=== PATIENT | male | born 1960 | race Caucasian/White ===

== ENCOUNTER 2018-06-12 21:40 | Emergency (ER) | payer MEDICAID, MEDICARE, OTHER ==
[~2018-06-12] VITALS: Ht 193 cm; Wt 79.8 kg
[2018-06-12 21:42] VITALS: BP 151/92
== END 2018-06-12 22:55 | disposition home or self-care (01) ==
LOC: ED 22:20
DX: S52.692A Other fracture of lower end of left ulna, initial encounter for closed fracture (principal); Z21 Asymptomatic human immunodeficiency virus [HIV] infection status; X58.XXXA Exposure to other specified factors, initial encounter; Y93.89 Activity, other specified; Y99.8 Other external cause status; Y92.89 Other specified places as the place of occurrence of the external cause
CPT/HCPCS: 29125; 99284